=== PATIENT | male | born 1990 | race Caucasian/White ===

== ENCOUNTER 2023-06-04 19:34 | Inpatient (IN) | payer OTHER ==
--- NOTE | 2023-06-05 00:17 | ED ---
General Adult HPI - General Source: patient, RN notes reviewed Mode of arrival: ambulatory Limitations: no limitations <Simona Zendejas - Last Filed: 06/05/23 00:17> - General Source: patient, RN notes reviewed, old records reviewed <Kareem Marquis - Last Filed: 06/05/23 06:59> - General Chief complaint: Alcohol Stated complaint: Alcohol Time Seen by Provider: 06/05/23 00:16 - History of Present Illness Initial comments: 52-year-old male presents the emergency department with a chief complaint of alcohol abuse and worsening depression. Denies suicidal or homicidal ideation at this time. (Simona Zendejas) Patient is a 32-year-old male who presents emergency Department complaining of alcohol withdrawals. Has a history of chronic alcohol abuse. Drinks 24-30 beers per day. States he's had increased stress which has thrown them oriented binge drinking, however states he does not want to drink anymore and wants to stop. Presents with his father. States he is shaky. States his last beverage was around 5 PM. Denies any nausea. Does endorse some mild agitation. Denies any headaches or sensitivity to light. States he has gone through withdrawals but never had 64. Presents for further evaluation at this time is looking to get treatment for alcohol withdrawals. States he will not drink if he is discharged home.Denies any other drug use. Patient originally evaluated as a quick note. (Kareem Marquis) - Related Data Allergies Allergy/AdvReac Type Severity Reaction Status Date / Time Fish Containing Products Allergy Anaphylaxis Verified 06/04/23 19:42 peanut [Peanut Butter] Allergy Anaphylaxis Verified 06/04/23 19:42 Review of Systems ROS Other: All systems not noted in ROS Statement are negative. <Simona Zendejas - Last Filed: 06/05/23 00:17> ROS Other: All systems not noted in ROS Statement are negative. <Kareem Marquis - Last Filed: 06/05/23 06:59> ROS Statement: Those systems with pertinent positive or pertinent negative responses have been documented in the HPI. Review of Systems: CONST: Denies fever EYES: Denies blurry vision ENT: Denies nasal congestion C/V: Denies Chest pain RESP: Denies shortness of breath GI: Denies abdominal pain : Denies dysuria SKIN: Denies rash. MSK: Denies joint pain. NEURO: Denies headache (Kareem Marquis) Past Medical History Past Medical History: No Reported History History of Any Multi-Drug Resistant Organisms: None Reported Past Surgical History: No Surgical Hx Reported Past Psychological History: Depression Smoking Status: Former smoker Past Alcohol Use History: Abuse, Daily, Heavy Past Drug Use History: None Reported <Simona Zendejas - Last Filed: 06/05/23 00:17> General Exam Limitations: no limitations <Simona Zendejas - Last Filed: 06/05/23 00:17> <Kareem Marquis - Last Filed: 06/05/23 06:59> - General Exam Comments Initial Comments: Visual Physical Exam Vital signs reviewed General: Well-appearing, nontoxic, no acute distress. Head: Normocephalic, atraumatic Eyes: PERRLA, EOMI ENT: Airway patent Chest: Nonlabored breathing Skin: No visual rash, normal skin tone Neuro: Alert and oriented 3 Musculoskeletal: No gross abnormalities (Simona Zendejas) General: Patient appears mildly agitated, tachycardic, with tremors. HEAD: Normal with no signs of head trauma. EYES: PERRLA, EOMI, conjunctiva normal, no discharge. ENT: Hearing grossly intact, normal oropharynx. RESPIRATORY: Clear breath sounds bilaterally. No wheezes, rales, or rhonchi. C/V: Tachycardic with a regular rhythm. S1 and S2 auscultated, peripheral pulses 2+ and intact throughout ABD: Abd is soft, nontender, nondistended EXT: Normal range of motion, no obvious deformity SKIN: No rashes or lesions observed on exposed skin. NEURO: Alert and oriented x 4. Cranial nerves II-XII intact. No focal sensory or strength deficits. Tremors. Tongue fasciculations. Appears to be an mild to moderate alcohol withdrawals. (Kareem Marquis) Course Vital Signs 06/04/23 06/05/23 06/05/23 19:38 02:25 04:00 Temperature 99 F Pulse Rate 149 H 109 H 111 H Respiratory 20 16 18 Rate Blood Pressure 170/92 169/96 162/88 O2 Sat by Pulse 95 98 98 Oximetry 06/05/23 06/05/23 05:00 06:00 Temperature Pulse Rate 107 H 112 H Respiratory 18 20 Rate Blood Pressure 136/78 133/76 O2 Sat by Pulse 95 98 Oximetry Medical Decision Making - Lab Data Result diagrams: 06/05/23 00:41 06/05/23 00:41 - EKG Data -: EKG Interpreted by Me <BenitezKareem - Last Filed: 06/05/23 06:59> - Medical Decision Making Was pt. sent in by a medical professional or institution (, [facility], OUTSIDE SALES ACCOUNT REPRESENTATIVE, urgent care, hospital, or half-way...) When possible be specific @ -No Did you speak to anyone other than the patient for history (EMS, parent, family, police, friend...)? What history was obtained from this source @ -No Did you review nursing and triage notes (agree or disagree)? Why? @ -I reviewed and agree with nursing and triage notes Were old charts reviewed (outside hosp., previous admission, EMS record, old EKG, old radiological studies, urgent care reports/EKG's, half-way records)? Report findings @ -No old charts were reviewed Differential Diagnosis (chest pain, altered mental status, abdominal pain women, abdominal pain men, vaginal bleeding, weakness, fever, dyspnea, syncope, headache, dizziness, GI bleed, back pain, seizure, CVA, palpatations, mental health, musculoskeletal)? @ -Alcohol withdrawals, alcohol intoxication, electrolyte abnormalities, tachycardia, this list is not all inclusive. EKG interpreted by me (3pts min.). @ -As above X-rays interpreted by me (1pt min.). @ -None done CT interpreted by me (1pt min.). @ -None done U/S interpreted by me (1pt. min.). @ -None done What testing was considered but not performed or refused? (CT, X-rays, U/S, labs)? Why? @ -None What meds were considered but not given or refused? Why? @ -None Did you discuss the management of the patient with other professionals (professionals i.e. , [facility], OUTSIDE SALES ACCOUNT REPRESENTATIVE, lab, RT, psych nurse, social services technician, blood bank supervisor, te acher, electrical engineering drafting officer, correctional casework specialist)? Give summary @ -Discussed with ANGELY Laguerre of [facility] who accepted the patient. Was smoking cessation discussed for >3mins.? @ -No Was critical care preformed (if so, how long)? @ -No Were there social determinants of health that impacted care today? How? (Homelessness, low income, unemployed, alcoholism, drug addiction, transportation, low edu. Level, literacy, decrease access to med. care, correction, rehab)? @ -No Was there de-escalation of care discussed even if they declined (Discuss DNR or withdrawal of care, Hospice)? DNR status @ -No What co-morbidities impacted this encounter? (DM, HTN, Smoking, COPD, CAD, Cancer, CVA, ARF, Chemo, Hep., AIDS, mental health diagnosis, sleep apnea, morbid obesity)? @ -Alcoholism Was patient admitted / discharged? Hospital course, mention meds given and route, prescriptions, significant lab abnormalities, going to OR and other pertinent info. @ -Based on the patient's presentation and physical exam, patient presents acutely infected with alcohol and appears to be in mild to moderate alcohol withdrawals. His no other acute complaints at this time other than tremors, wit hdrawal symptoms. Patient is tachycardic. Remainder the vital signs are within acceptable limits.Patient originally evaluated as a quick note. Workup was started in triage. EKG reveals sinus tachycardia. Labs are remarkable for an alcohol level of 295. She is elevated mildly LFTs in the setting of alcohol abuse. Remainder the labs are unremarkable. Patient's CIWA is 11. He'll be administered Ativan. We will admit for monitoring for alcohol withdrawals. I have treated the patient. At this time he will be admitted to the hospital. He will be admitted to [facility]. I spoke with ANGELY Laguerre who accepted the admission. Undiagnosed new problem with uncertain prognosis? @ -No Drug Therapy requiring intensive monitoring for toxicity (Heparin, Nitro, Insulin, Cardizem)? @ -No Were any procedures done? @ -No Diagnosis/symptom? @ -Alcohol intoxication, alcohol withdrawal Acute, or Chronic, or Acute on Chronic? @ -Acute Uncomplicated (without systemic symptoms) or Complicated (systemic symptoms)? @ -Complicated Side effects of treatment? @ -No Exacerbation, Progression, or Severe Exacerbation? @ -No Poses a threat to life or bodily function? How? (Chest pain, USA, AR, pneumonia, PE, COPD, DKA, ARF, appy, cholecystitis, CVA, Diverticulitis, Homicidal, Lia cidal, threat to staff... and all critical care pts) @ -Yes (Kareem Marquis) - Lab Data Lab Results 06/05/23 06/05/23 06/05/23 Range/Units 00:30 00:41 00:41 WBC 10.2 (3.8-10.6) k/uL RBC 5.31 (4.30-5.90) m/uL Hgb 16.7 (13.0-17.5) gm/dL Hct 48.4 (39.0-53.0) % MCV 91.1 (80.0-100.0) fL MCH 31.5 (25.0-35.0) pg MCHC 34.6 (31.0-37.0) g/dL RDW 12.5 (11.5-15.5) % Plt Count 108 L (150-450) k/uL MPV 8.0 Neutrophils % 76 % Lymphocytes % 14 % Monocytes % 9 % Eosinophils % 0 % Basophils % 0 % Neutrophils # 7.8 H (1.3-7.7) k/uL Lymphocytes # 1.4 (1.0-4.8) k/uL Monocytes # 0.9 (0-1.0) k/uL Eosinophils # 0.0 (0-0.7) k/uL Basophils # 0.0 (0-0.2) k/uL Sodium (137-145) mmol/L Potassium (3.5-5.1) mmol/L Chloride (98-107) mmol/L Carbon Dioxide (22-30) mmol/L Anion Gap mmol/L BUN (9-20) mg/dL Creatinine (0.66-1.25) mg/dL Est GFR (CKD-EPI)AfAm (>60 ml/min/1.73 sqM) Est GFR (CKD-EPI)NonAf (>60 ml/min/1.73 sqM) Glucose (74-99) mg/dL Calcium (8.4-10.2) mg/dL Total Bilirubin (0.2-1.3) mg/dL AST (17-59) U/L ALT (4-49) U/L Alkaline Phosphatase (38-126) U/L Total Protein (6.3-8.2) g/dL Albumin (3.5-5.0) g/dL Urine Color Urine Appearance (Clear) Urine pH (5.0-8.0) Ur Specific [place] (1.001-1.035) Urine Protein (Negative) Urine Glucose (UA) (Negative) Urine Ketones (Negative) Urine Blood (Negative) Urine Nitrite (Negative) Urine Bilirubin (Negative) Urine Urobilinogen (<2.0) mg/dL Ur Leukocyte Esterase (Negative) Urine RBC (0-5) /hpf Urine WBC (0-5) /hpf Urine Mucus (None) /hpf Serum Alcohol 295 H* mg/dL Influenza Type A (PCR) Not Detected (Not Detectd) Influenza Type B (PCR) Not Detected (Not Detectd) RSV (PCR) Not Detected (Not Detectd) SARS-CoV-2 (PCR) Not Detected (Not Detectd) 06/05/23 06/05/23 Range/Units 00:41 01:37 WBC (3.8-10.6) k/uL RBC (4.30-5.90) m/uL Hgb (13.0-17.5) gm/dL Hct (39.0-53.0) % MCV (80.0-100.0) fL MCH (25.0-35.0) pg MCHC (31.0-37.0) g/dL RDW (11.5-15.5) % Plt Count (150-450) k/uL MPV Neutrophils % % Lymphocytes % % Monocytes % % Eosinophils % % Basophils % % Neutrophils # (1.3-7.7) k/uL Lymphocytes # (1.0-4.8) k/uL Monocytes # (0-1.0) k/uL Eosinophils # (0-0.7) k/uL Basophils # (0-0.2) k/uL Sodium 131 L (137-145) mmol/L Potassium 3.7 (3.5-5.1) mmol/L Chloride 92 L (98-107) mmol/L Carbon Dioxide 24 (22-30) mmol/L Anion Gap 15 mmol/L BUN 5 L (9-20) mg/dL Creatinine 0.51 L (0.66-1.25) mg/dL Est GFR (CKD-EPI)AfAm >90 (>60 ml/min/1.73 sqM) Est GFR (CKD-EPI)NonAf >90 (>60 ml/min/1.73 sqM) Glucose 154 H (74-99) mg/dL Calcium 8.4 (8.4-10.2) mg/dL Total Bilirubin 1.3 (0.2-1.3) mg/dL AST 366 H (17-59) U/L ALT 355 H (4-49) U/L Alkaline Phosphatase 87 (38-126) U/L Total Protein 7.8 (6.3-8.2) g/dL Albumin 4.5 (3.5-5.0) g/dL Urine Color Yellow Urine Appearance Clear (Clear) Urine pH 6.0 (5.0-8.0) Ur Specific [place] 1.017 (1.001-1.035) Urine Protein 2+ H (Negative) Urine Glucose (UA) 2+ H (Negative) Urine Ketones 1+ H (Negative) Urine Blood Small H (Negative) Urine Nitrite Negative (Negative) Urine Bilirubin Negative (Negative) Urine Urobilinogen <2.0 (<2.0) mg/dL Ur Leukocyte Esterase Negative (Negative) Urine RBC 1 (0-5) /hpf Urine WBC 3 (0-5) /hpf Urine Mucus Few H (None) /hpf Serum Alcohol mg/dL Influenza Type A (PCR) (Not Detectd) Influenza Type B (PCR) (Not Detectd) RSV (PCR) (Not Detectd) SARS-CoV-2 (PCR) (Not Detectd) - EKG Data EKG Comments: 12-lead Electrocardiogram Interpretation Note EKG was reviewed and interpreted by myself. 12-lead ECG performed at 1946 is interpreted by me as revealing sinus tachycardia at a rate of 129 beats per minute. Left axis deviation. DE intervals 164 ms, QRS duration is 90 ms, QTc is 370 ms.. There were no ST or T wave abnormalities to suggest myocardial ischemia or injury. R wave progression across the precordium was satisfactory. By my interpretation this EKG is non-diagnostic for acute ischemia. (Kareem Marquis) Disposition <Simona Zendejas - Last Filed: 06/05/23 00:17> Time of Disposition: 01:28 <Kareem Marquis - Last Filed: 06/05/23 06:59> Clinical Impression: Alcoholic intoxication, Alcohol withdrawal Disposition: ADMITTED IP TO THIS HOSP Condition: Stable
[2023-06-05 00:58] LABS: Basophils % (A) 0 %; Eosinophils % (A) 0 %; HCT 48.4 % (39.0-53.0); HGB 16.7 gm/dL (13.0-17.5); Lymphocytes # (A) 1.4 k/uL (1.0-4.8); Lymphocytes % (A) 14 %; MCH 31.5 pg (25.0-35.0); MCHC 34.6 g/dL (31.0-37.0); MCV 91.1 fL (80.0-100.0); Monocytes # (A) 0.9 k/uL (0-1.0); Monocytes % (A) 9 %; Neutrophils # (A) 7.8 k/uL (1.3-7.7); Neutrophils % (A) 76 %; Platelet Count 108 k/uL (150-450); RBC 5.31 m/uL (4.30-5.90); RDW 12.5 % (11.5-15.5); WBC 10.2 k/uL (3.8-10.6)
[2023-06-05] MEDS ORDERED: SODIUM CHLORIDE 0.9% 1,000 ML IV STA (01:11)
[2023-06-05] MEDS ORDERED: THIAMINE 100 MG/ML 2 ML VIAL IM STA (01:11)
[2023-06-05] MEDS ORDERED: LORazepam 2 MG/ML INJ IV PRN ×2 (01:11)
[2023-06-05] MEDS ORDERED: ONDANSETRON 4 MG/2 ML VIAL IVP STA (01:11)
[2023-06-05 01:33] LABS: ALT 355 U/L (4-49); AST 366 U/L (17-59); African American GFR (CKD) >90 (>60 ml/min/1.73 sqM); Albumin 4.5 g/dL (3.5-5.0); Alkaline Phosphatase 87 U/L (38-126); Anion Gap 15 mmol/L; Blood Urea Nitrogen 5 mg/dL (9-20); Calcium 8.4 mg/dL (8.4-10.2); Carbon Dioxide 24 mmol/L (22-30); Chloride 92 mmol/L (98-107); Glucose 154 mg/dL (74-99); Non-African American GFR(CKD) >90 (>60 ml/min/1.73 sqM); Potassium 3.7 mmol/L (3.5-5.1); Sodium 131 mmol/L (137-145); Total Bilirubin 1.3 mg/dL (0.2-1.3); Total Protein 7.8 g/dL (6.3-8.2)
[2023-06-05 01:49] LABS: Appearance,Urine Clear (Clear); Bilirubin,Urine Negative (Negative); Blood,Urine Small (Negative); Color,Urine Yellow; Glucose,Urine (UA) 2+ (Negative); Ketones,Urine 1+ (Negative); Leukocyte Esterase,Urine Negative (Negative); Mucus,Urine Few /hpf; Nitrite,Urine Negative (Negative); Protein,Urine 2+ (Negative); RBC,Urine 1 /hpf (0-5); Specific Gravity,Urine 1.017 (1.001-1.035); Urobilinogen,Urine <2.0 mg/dL (<2.0); WBC,Urine 3 /hpf (0-5)
[2023-06-05] MEDS ORDERED: IBUPROFEN 400 MG TAB PO PRN (02:17)
[2023-06-05] MEDS ORDERED: ONDANSETRON 4 MG/2 ML VIAL IVP PRN (02:17)
[2023-06-05] MEDS ORDERED: NALOXONE 0.4 MG/ML 1 ML VIAL IV PRN (02:17)
[2023-06-05] MEDS: SODIUM CHLORIDE 0.9% 1,000 ML IV SCH ×2 (04:17→11:18)
[2023-06-05] MEDS: LORazepam 2 MG/ML INJ IV PRN ×7 (04:17→20:41)
--- NOTE | 2023-06-05 13:50 | P.CN ---
Psychiatric Consult - . Consult date: 06/05/23 Consult:: 06/05/23 13:49 IDENTIFYING DATA: This patient is a single, unemployed, 32-year-old male with no significant medical history presented to our hospital on 06/05/2023 with concerns for alcohol withdrawal HISTORY OF PRESENT ILLNESS: The patient presented to the hospital or 06/05/2023 with concerns for alcohol withdrawal. The patient has been drinking approximately 24-30 beers a day for the past 3 weeks. Psychiatry has been consulted for evaluation of depression as the patient was endorsing feeling very depressed. Upon assessment by psychiatry, the patient reports that he has been depressed since his mother approximately 3 weeks ago after her huber with leukemia. He reports feeling significant symptoms of grief including feeling down, crying, and excessive guilt. He is however vehemently denying any suicidal or homicidal ideation, intention, and/or plan. He does report that he has previously attempted suicide during his early 20s. He is not reporting any significant symptoms of bipolar disorder and denies any periods of excessive energy, grandiosity, increased goal-directed activity, or racing thoughts. The patient does endorse significant alcohol abuse. He reports that he has been drinking approximately 30 beers per day however when his mother began treatment with leukemia, he was coping with approximately 15 years per day. He reports that she was fighting leukemia for 6 months prior to passing away. PAST PSYCHIATRIC HISTORY: Patient has a history of depression. Patient denies being on any psychiatric medications. Patient denies any previous psychiatric hospitalizations. Patient denies any psychiatric outpatient follow-up. He reports one prior attempt at suicide in his 20s. PAST MEDICAL HISTORY: . Past Medical History: No Reported History History of Any Multi-Drug Resistant Organisms: None Reported Past Surgical History: No Surgical Hx Reported Past Psychological History: Depression Smoking Status: Former smoker Past Alcohol Use History: Abuse, Daily, Heavy Past Drug Use History: None Reported ALLERGIES: Allergies Allergy/AdvReac Type Severity Reaction Status Date / Time Fish Containing Products Allergy Anaphylaxis Verified 06/05/23 07:09 peanut Peanut Butter Allergy Anaphylaxis Verified 06/05/23 07:09 CHEMICAL DEPENDENCY HISTORY: The patient reports drinking approximately 30 beers per day. He states that this has been ongoing for the past 3 weeks. Prior to this, he reports drinking 15 beers per day for approximately 6 months. He reports a history of tremors however denies any history of seizure or hallucinations. He also reports daily vape use. He denies any marijuana or illicit drug use. No history of rehab or detox. FAMILY PSYCHIATRIC/SUBSTANCE USE HISTORY: SOCIAL HISTORY: Patient was born and raised in [place], [place]. He is single, never , and has no children. He is currently unemployed. He only completed up to the 10th grade. He currently lives with his father. His hobbies and interests include 4 wheeling, fishing, and hunting. MENTAL STATUS EXAM: General Appearance: Patient appears to be stated age is alert, pleasant, and cooperative. Patient appears to have slightly disheveled hygiene and grooming wearing hospital gown with fair eye contact. Behavior: Mildly tremulous. Speech: Patient's speech is fluent and nonpressured. Mood/Affect: Patient reports their mood is "depressed", affect is congruent and constricted Suicidality/Homicidality: Patient vehemently denies any suicidal or homicidal ideation, intention, and/or plan. Perceptions: Patient denies any visual hallucinations and denies any auditory hallucinations Though content/process: There is no evidence of any delusional thought content and thought process is linear and goal-directed. Memory and concentration: AOX3, grossly intact for the purposes of this session. Can spell "WORLD" backwards Judgment and insight: Fair IMPRESSIONS: Acute bereavement Alcohol use disorder Alcohol withdrawal PLAN: -Continue your medical management for acute alcohol withdrawal -At this time patient DOES NOT meet criteria for inpatient psychiatric admission. The patient is not not presenting with imminent risk of harm to self or others and is vehemently denying any suicidal or homicidal ideation. He is not overtly manic or psychotic. -Approximately 20 minutes are spent providing the patient with supportive psychotherapy and motivational interviewing regarding his substance abuse. He also engaged in grief counseling. -Would recommend the following medication changes/additions: We will start acamprosate 333 mg by mouth 3 times a day for management of alcohol use disorder -Patient does not require a one-to-one sitter -Recommend she was provided with resources for substance abuse. Patient is motivated to quit alcohol. -Psychiatry will sign off at this point, please contact with any questions. 06/05/23 13:49
--- NOTE | 2023-06-05 13:59 | P.HPIM ---
History of Present Illness H&P Date: 06/05/23 History of present illness; patient is a 32-year-old gentleman with past medical history significant for alcohol abuse who presented to the ER because of alcohol detoxification and worsening depression. Patient stated that he has lot of social stressors at home because of which he went into an alcoholic binge, admits to drinking 22-30 beers per day but denies any suicidal thoughts heated denies any auditory or visual hallucinations Initial lab work done in the ER showed WBC 10.2, hemoglobin 16.7, platelet count 108, sodium 131, potassium 3.7, BUN 5, creatinine 0.51, AST 366, ALT is 355 Patient was admitted to medicine service REVIEW OF SYSTEMS: CONSTITUTIONAL: No fever, no malaise, no fatigue. HEENT: No recent visual problems or hearing problems. Denied any sore throat. CARDIOVASCULAR: No chest pain, orthopnea, PND, no palpitations, no syncope. PULMONARY: No shortness of breath, no cough, no hemoptysis. GASTROINTESTINAL: No diarrhea, no nausea, no vomiting, no abdominal pain. NEUROLOGICAL: No headaches, no weakness, no numbness. HEMATOLOGICAL: Denies any bleeding or petechiae. GENITOURINARY: Denies any burning micturition, frequency, or urgency. MUSCULOSKELETAL/RHEUMATOLOGICAL: Denies any joint pain, swelling, or any muscle pain. ENDOCRINE: Denies any polyuria or polydipsia. The rest of the 14-point review of systems is negative. PHYSICAL EXAMINATION: GENERAL: The patient is alert and oriented x3, not in any acute distress. Well developed, well nourished. HEENT: Pupils are round and equally reacting to light. EOMI. No scleral icterus. No conjunctival pallor. Normocephalic, atraumatic. No pharyngeal erythema. No thyromegaly. CARDIOVASCULAR: S1 and S2 present. No murmurs, rubs, or gallops. PULMONARY: Chest is clear to auscultation, no wheezing or crackles. ABDOMEN: Soft, nontender, nondistended, normoactive bowel sounds. No palpable organomegaly. MUSCULOSKELETAL: No joint swelling or deformity. EXTREMITIES: No cyanosis, clubbing, or pedal edema. NEUROLOGICAL: Gross neurological examination did not reveal any focal deficits. SKIN: No rashes. Assessment and plan Acute alcohol intoxication Alcohol abuse Alcoholic hepatitis Severe depression Monitor vital signs Monitor CBC Monitor CMP Continue telemetry monitoring Continue thiamine and folic acid Continue CIWA protocol Avoid hepatotoxic agents Ordered ultrasound abdominal Consult psychiatry Labs and medication were reviewed.. Continue same treatment. Continue with symptomatic treatment. Resume home medication. Monitor labs and vitals. DVT and GI prophylaxis. Further recommendations as per clinical course of the patient Past Medical History Past Medical History: No Reported History History of Any Multi-Drug Resistant Organisms: None Reported Past Surgical History: No Surgical Hx Reported Past Psychological History: Depression Smoking Status: Former smoker Past Alcohol Use History: Abuse, Daily, Heavy Past Drug Use History: None Reported Medications and Allergies Home Medications Medication Instructions Recorded Confirmed Type No Known Home Medications 06/05/23 06/05/23 History Allergies Allergy/AdvReac Type Severity Reaction Status Date / Time Fish Containing Products Allergy Anaphylaxis Verified 06/05/23 07:09 peanut [Peanut Butter] Allergy Anaphylaxis Verified 06/05/23 07:09 Physical Exam Vitals: Vital Signs Temp Pulse Resp BP Pulse Ox 06/05/23 08:13 118 H 18 138/94 98 06/05/23 06:00 112 H 20 133/76 98 06/05/23 05:00 107 H 18 136/78 95 06/05/23 04:00 111 H 18 162/88 98 06/05/23 02:25 109 H 16 169/96 98 06/04/23 19:38 99 F 149 H 20 170/92 95 Intake and Output 06/04/23 06/05/23 06/05/23 22:59 06:59 14:59 Other: Weight 81.647 kg Results CBC & Chem 7: 06/05/23 00:41 06/05/23 00:41 Labs: Abnormal Lab Results - Last 24 Hours (Table) 06/05/23 06/05/23 06/05/23 Range/Units 00:41 00:41 00:41 Plt Count 108 L (150-450) k/uL Neutrophils # 7.8 H (1.3-7.7) k/uL Sodium 131 L (137-145) mmol/L Chloride 92 L (98-107) mmol/L BUN 5 L (9-20) mg/dL Creatinine 0.51 L (0.66-1.25) mg/dL Glucose 154 H (74-99) mg/dL AST 366 H (17-59) U/L ALT 355 H (4-49) U/L Urine Protein (Negative) Urine Glucose (UA) (Negative) Urine Ketones (Negative) Urine Blood (Negative) Urine Mucus (None) /hpf Serum Alcohol 295 H* mg/dL 06/05/23 Range/Units 01:37 Plt Count (150-450) k/uL Neutrophils # (1.3-7.7) k/uL Sodium (137-145) mmol/L Chloride (98-107) mmol/L BUN (9-20) mg/dL Creatinine (0.66-1.25) mg/dL Glucose (74-99) mg/dL AST (17-59) U/L ALT (4-49) U/L Urine Protein 2+ H (Negative) Urine Glucose (UA) 2+ H (Negative) Urine Ketones 1+ H (Negative) Urine Blood Small H (Negative) Urine Mucus Few H (None) /hpf Serum Alcohol mg/dL
[2023-06-05] MEDS: ACAMPROSATE CALCIUM 333 MG TABLET.DR PO SCH ×2 (15:00→20:41)
[2023-06-06] MEDS: LORazepam 2 MG/ML INJ IV PRN ×3 (01:54→20:22)
[2023-06-06] MEDS: SODIUM CHLORIDE 0.9% 1,000 ML IV SCH ×2 (04:18→18:55)
[2023-06-06] MEDS: ACAMPROSATE CALCIUM 333 MG TABLET.DR PO SCH ×3 (08:01→20:12)
[2023-06-06] MEDS: THIAMINE 100 MG TAB PO SCH (08:01)
--- NOTE | 2023-06-06 09:03 | US ---
EXAMINATION TYPE: US abdomen complete DATE OF EXAM: 06/06/2023 COMPARISON: NONE CLINICAL INDICATION: Male, 32 years old with history of Abdominal pain, elevated LFTs; elevated LFT's pt. denies abd pain TECHNIQUE: Multiple sonographic images of the abdomen are obtained. FINDINGS: EXAM MEASUREMENTS: Liver Length: 18.8 cm Gallbladder Wall: 0.2 cm CBD: 0.3 cm Spleen: 10.0 cm Right Kidney: 12.2x5.4x cm Left Kidney: 12.2X5.4X4.3 cm REAL ESTATE SALES AGENT NOTES: Pancreas: wnl Liver: increased attenuation, enlarged Gallbladder: wnl Evidence for sonographic Bone's sign: No CBD: wnl Spleen: wnl Right Kidney: wnl Left Kidney: wnl Upper IVC: wnl Abd Aorta: wnl EXAM SLIGHTLY LIMITED DUE TO RIB SHADOWS The intrahepatic portion of the IVC and proximal abdominal aorta are within normal limits. There is no evidence of cholelithiasis. Common bile duct is unremarkable. The visualized portions of the bean creas are homogenous. The spleen is unremarkable. Kidneys are symmetric and free of hydronephrosis. No renal lesions are seen. IMPRESSION: Probable hepatic steatosis with hepatomegaly. Correlate with adequate function testing.
[2023-06-06 11:21] LABS: BUN/Creat Ratio 9.86 Ratio (12.00-20.00); Blood Urea Nitrogen 6.9 mg/dL (9.0-27.0); Calcium 9.3 mg/dL (8.7-10.3); Carbon Dioxide 25.4 mmol/L (21.6-31.8); Chloride 101 mmol/L (96-109); Glucose 82 mg/dL (70-110); Potassium 3.6 mmol/L (3.5-5.5); Sodium 140 mmol/L (135-145)
[2023-06-06 12:09] LABS: Basophils # (A) 0.05 X 10*3/uL (0.00-0.10); Basophils % (A) 0.7 %; Eosinophils # (A) 0.04 X 10*3/uL (0.04-0.35); Eosinophils % (A) 0.6 %; HGB 16.5 d/dL (12.0-15.0); Immature Platelet Fraction 11.6 % (1.1-6.1); Lymphocytes # (A) 1.03 X 10*3/uL (0.90-5.00); Lymphocytes % (A) 15.2 %; MCH 31.6 pg (27.0-32.0); MCHC 33.7 d/dL (32.0-37.0); MCV 93.9 FL (80.0-97.0); Monocytes % (A) 16.2 %; NRBC Per 100 WBC 0 X 10*3/uL (0.00-0.01); Neutrophils # (A) 4.55 X 10*3/uL (1.80-7.70); Platelet Count 72 X 10*3/uL (140-440); RBC 5.22 X 10*6/uL (4.40-5.60); RDW 12.2 % (11.5-14.5); WBC 6.79 X 10*3/uL (4.50-10.00)
[2023-06-06 13:50] VITALS: RESP 16
[2023-06-06] MEDS ORDERED: hydrALAZINE HCL 20 MG/ML 1 ML VIAL IVP PRN (14:16)
--- NOTE | 2023-06-06 14:18 | P.PN ---
Subjective Progress Note Date: 06/06/23 patient is a 32-year-old gentleman with past medical history significant for alcohol abuse who presented to the ER because of alcohol detoxification and worsening depression. Patient stated that he has lot of social stressors at home because of which he went into an alcoholic binge, admits to drinking 22-30 beers per day but denies any suicidal thoughts heated denies any auditory or visual hallucinations Initial lab work done in the ER showed WBC 10.2, hemoglobin 16.7, platelet count 108, sodium 131, potassium 3.7, BUN 5, creatinine 0.51, AST 366, ALT is 355 Patient was admitted to medicine service 06/06. Patient seen and examined. Patient still restless, heart rate and blood pressure elevated REVIEW OF SYSTEMS: CONSTITUTIONAL: No fever, no malaise,. CARDIOVASCULAR: No chest pain, no palpitations, no syncope. PULMONARY: No shortness of breath, no cough, GASTROINTESTINAL: No diarrhea, no nausea, no vomiting, no abdominal pain. NEUROLOGICAL: No headaches, no weakness, PHYSICAL EXAMINATION: GENERAL: The patient is alert and oriented x3, not in any acute distress. Well developed, well nourished. HEENT: Pupils are round and equally reacting to light. EOMI. No scleral icterus. No conjunctival pallor. Normocephalic, atraumatic. No pharyngeal erythema. No thyromegaly. CARDIOVASCULAR: S1 and S2 present. No murmurs, rubs, or gallops. Tachycardic PULMONARY: Chest is clear to auscultation, no wheezing or crackles. ABDOMEN: Soft, nontender, nondistended, normoactive bowel sounds. No palpable organomegaly. MUSCULOSKELETAL: No joint swelling or deformity. EXTREMITIES: No cyanosis, clubbing, or pedal edema. NEUROLOGICAL: Gross neurological examination did not reveal any focal deficits. SKIN: No rashes. Assessment and plan Acute alcohol intoxication Alcohol abuse Alcoholic hepatitis Severe depression Monitor vital signs Monitor CBC Monitor CMP Continue thiamine and folic acid Continue CIWA protocol Avoid hepatotoxic agents Added prn hydralazine IV for blood pressure more than 170/110 Psych evaluated the patient, recommended no inpatient psych admission at this time Labs and medication were reviewed.. Continue same treatment. Continue with symptomatic treatment. Resume home medication. Monitor labs and vitals. DVT and GI prophylaxis. Further recommendations as per clinical course of the patient Objective - Vital Signs Vital signs: Vital Signs Temp 98.4 F 06/06/23 07:48 Pulse 119 H 06/06/23 08:00 Resp 17 06/06/23 07:48 BP 159/101 06/06/23 07:48 Pulse Ox 100 06/06/23 07:48 FiO2 Intake & Output 06/05/23 06/06/23 06/06/23 18:59 06:59 18:59 Intake Total 600 200 Output Total 2650 Balance 600 -2450 Weight 81.647 kg Intake: Intake, IV Titration 600 Amount Sodium Chloride 0.9% 1, 600 000 ml @ 75 mls/hr IV . [id number] [facility] Rx#:[id number] Oral 200 Output: Urine 2650 Other: Voiding Method Urinal # Voids 900 - Labs CBC & Chem 7: 06/06/23 06:44 06/06/23 06:41
[2023-06-06] MEDS: METOPROLOL TARTRATE 25 MG TAB PO SCH (18:25)
[2023-06-07 02:27] VITALS: TEMP 98.4
[2023-06-07] MEDS: SODIUM CHLORIDE 0.9% 1,000 ML IV SCH (06:17)
[2023-06-07 07:27] VITALS: BP 150/105; PULSE 101
[2023-06-07] MEDS: ACAMPROSATE CALCIUM 333 MG TABLET.DR PO SCH (07:27)
[2023-06-07] MEDS: METOPROLOL TARTRATE 25 MG TAB PO SCH (07:27)
[2023-06-07] MEDS: THIAMINE 100 MG TAB PO SCH (07:27)
[2023-06-07 11:20] LABS: ALT 328 U/L (10-49); AST 225 U/L (14-35); Albumin 3.8 d/dL (3.8-4.9); Albumin/Globulin Ratio 1.52 Ratio (1.60-3.17); Alkaline Phosphatase 87 U/L (41-126); BUN/Creat Ratio 13.43 Ratio (12.00-20.00); Blood Urea Nitrogen 9.4 mg/dL (9.0-27.0); Calcium 9.1 mg/dL (8.7-10.3); Chloride 101 mmol/L (96-109); Globulin 2.5 d/dL (1.6-3.3); Glucose 78 mg/dL (70-110); Potassium 3.8 mmol/L (3.5-5.5); Sodium 136 mmol/L (135-145); Total Bilirubin 1.8 mg/dL (0.3-1.2); Total Protein 6.3 d/dL (6.2-8.2)
[2023-06-07 11:27] LABS: HGB 15.6 d/dL (12.0-15.0); Immature Platelet Fraction 14.5 % (1.1-6.1); MCH 31.1 pg (27.0-32.0); MCHC 33.2 d/dL (32.0-37.0); MCV 93.8 FL (80.0-97.0); Mean Platelet Volume 11.5 FL (9.5-12.2); NRBC Per 100 WBC 0 X 10*3/uL (0.00-0.01); Platelet Count 73 X 10*3/uL (140-440); RBC 5.01 X 10*6/uL (4.40-5.60); RDW 11.9 % (11.5-14.5); WBC 7.91 X 10*3/uL (4.50-10.00)
--- NOTE | 2023-06-07 12:43 | P.DS ---
Providers Date of admission: 06/05/23 02:17 Expected date of discharge: 06/07/23 Attending physician: Sayra De La Cruz Consults: 06/05/23 10:56 Consult Physician Routine Consulting Provider: Artur Rose Consult Reason/Comments: Worsening depression Do you want consulting provider notified?: Yes Primary care physician: Stated None Hospital Course: Discharge diagnoses; Acute alcohol intoxication Alcohol abuse Alcoholic hepatitis Severe depression Hypertension Sinus tachycardia Hospital course; patient is a 32-year-old gentleman with past medical history significant for alcohol abuse who presented to the ER because of alcohol detoxification and worsening depression. Patient stated that he has lot of social stressors at home because of which he went into an alcoholic binge, admits to drinking 22-30 beers per day but denies any suicidal thoughts heated denies any auditory or visual hallucinations Initial lab work done in the ER showed WBC 10.2, hemoglobin 16.7, platelet count 108, sodium 131, potassium 3.7, BUN 5, creatinine 0.51, AST 366, ALT is 355 Patient was admitted to medicine service 06/06. Patient seen and examined. Patient still restless, heart rate and blood pressure elevated 06/07. Patient seen and examined. Heart rate and blood pressure much improved. Patient medically stable for discharge being discharged on Lopressor 12.5 mg continue twice a day for hypertension PHYSICAL EXAMINATION: GENERAL: The patient is alert and oriented x3, not in any acute distress. Well developed, well nourished. HEENT: Pupils are round and equally reacting to light. EOMI. No scleral icterus. No conjunctival pallor. Normocephalic, atraumatic. No pharyngeal erythema. No thyromegaly. CARDIOVASCULAR: S1 and S2 present. No murmurs, rubs, or gallops. PULMONARY: Chest is clear to auscultation, no wheezing or crackles. ABDOMEN: Soft, nontender, nondistended, normoactive bowel sounds. No palpable organomegaly. MUSCULOSKELETAL: No joint swelling or deformity. EXTREMITIES: No cyanosis, clubbing, or pedal edema. NEUROLOGICAL: Gross neurological examination did not reveal any focal deficits. SKIN: No rashes. Patient Condition at Discharge: Stable Plan - Discharge Summary Discharge Rx Participant: No New Discharge Prescriptions: New Acamprosate Calcium [Campral] 333 mg PO TID 10 Days #30 tab Metoprolol Tartrate [Lopressor] 12.5 mg PO BID #30 tab Thiamine [Vitamin B-1] 100 mg PO DAILY #30 tab Discharge Medication List Acamprosate Calcium [Campral] 333 mg PO TID 10 Days #30 tab 06/07/23 [Rx] Metoprolol Tartrate [Lopressor] 12.5 mg PO BID #30 tab 06/07/23 [Rx] Thiamine [Vitamin B-1] 100 mg PO DAILY #30 tab 06/07/23 [Rx] Follow up Appointment(s)/Referral(s): None,Stated [Primary Care Provider] - 1-2 days Discharge/Stand Alone Forms: AA Meetings [facility], Outpatient Counseling, In Substance Abuse Facilities Discharge Disposition: HOME SELF-CARE
== END 2023-06-07 14:44 | disposition home or self-care (01) | DRG 897 ==
LOC: EC 19:34 → 4SSUR 06-05 02:17
PROVIDERS: ADMIT Hospitalist; ATTEND Hospitalist
PROC: HZ2ZZZZ Detoxification Services for Substance Abuse Treatment (ICD-10-PCS; principal; 2023-06-05)
DX: F10.239 Alcohol dependence with withdrawal, unspecified (principal); F10.229 Alcohol dependence with intoxication, unspecified; F32.A Depression, unspecified; R00.0 Tachycardia, unspecified; F17.210 Nicotine dependence, cigarettes, uncomplicated; Z20.822 Contact with and (suspected) exposure to COVID-19; I10 Essential (primary) hypertension; Y90.8 Blood alcohol level of 240 mg/100 ml or more; K70.10 Alcoholic hepatitis without ascites; Z59.6 Low income; Z71.41 Alcohol abuse counseling and surveillance of alcoholic; Z91.010 Allergy to peanuts; Z91.013 Allergy to seafood; Z63.4 Disappearance and death of family member
CPT/HCPCS: 36415; 76700; 80048; 80053; 80320; 81001; 85025; 85027; 87636; 93005; 96361; 96372; 96374; 96376; 99285